=== PATIENT | male | born 1980 | race Caucasian/White ===

== ENCOUNTER 2020-05-06 01:50 | Outpatient (CLI) | payer OTHER, SELFPAY ==
[2020-05-06 18:40] LABS: SARS-CoV-2 RNA PCR Negative
== END 2020-05-06 01:51 | disposition home or self-care (01) ==
LOC: ANHCOVIDDT 01:51
PROVIDERS: PCP Nurse Practitioner; Visit Provider Surgery Plastic and Reconstructive Surgery
DX: Z01.812 Encounter for preprocedural laboratory examination (principal); Z20.828 Contact with and (suspected) exposure to other viral communicable diseases
CPT/HCPCS: 87635; C9803; U0003

== ENCOUNTER 2020-05-08 00:36 | Day surgery (SDC) | payer OTHER, SELFPAY ==
[2020-04-28 09:23] VITALS: BMI 32.3
--- NOTE | 2020-05-07 13:51 | WPDANESEPPF ---
Anes - Initial Pre Proc Eval Procedure: Operation Date: 05/08/20 07:30 Proposed Procedures p Treatment of Gynecomastia - Bello Harris MD Date/Time: 05/07/20 13:51 Surgeon: Bello Harris MD Pre Op Diagnosis: gynecomastia Patient Data Age: 39 Gender: M Height: 6 ft 1 in Weight: 111.13 kg Allergies Allergy/AdvReac Type Severity Reaction Status Date / Time No Known Allergies Allergy Verified 05/08/20 06:31 Home Medications Medication Instructions Recorded Confirmed Type Vitamin C 1 tablet PO DAILY 04/28/20 05/08/20 History cetirizine [Zyrtec] 10 mg PO DAILY 04/28/20 05/08/20 History glucosamine-chondroitin [Osteo 2 tablet PO DAILY 04/28/20 05/08/20 History Bi-Flex] docusate sodium 100 mg capsule 100 mg PO BID #14 cap 04/30/20 05/08/20 Rx hydrocodone 5 mg-acetaminophen 325 1 tablet PO Q6H PRN #15 tablet 04/30/20 05/08/20 Rx mg tablet ondansetron HCl 4 mg tablet 4 mg PO Q6H #30 tablet 04/30/20 05/08/20 Rx Patient hx anesthesia problems: none Family hx anesthesia problems: none PMFSH Past Medical History Medical History (Updated 05/07/20 @ 13:44 by Jermaine Mcduffie MD) Asthma Surgical History Surgical History (Updated 07/22/19 @ 16:18 by Jessica Gaming) History of vasectomy Social History Social History (Updated 07/22/19 @ 16:18 by Jessica Gaming) Smoking status: Never smoker Alcohol intake: current Drinks per week: 5 Spiritual care concerns: No Anes - Eval Final PreProcedure Day of Procedure 05/07/20 13:51 Patient weight: overweight Heart: regular rate and rhythm Lungs: clear to auscultation Airway: Mallampati scale class II Neurological: alert and oriented Last oral intake: >/= 8 hours ASA classification: II Emergent: no Anesthetic plan: proceed Anesthesia type and monitoring: general LMA and standard monitoring Informed Consent: The patient's anesthetic plan and its attendant risks and benefits were discussed with the patient/family/POA. Questions were solicited and answers provided to the satisfaction of the patient/family/POA.
[2020-05-08] VITALS (10 sets, daily range): BP systolic 122–139; BP diastolic 68–89; PULSE 60–80; RESP 10–20; TEMP 36–36.2; O2SAT 96–100
--- NOTE | 2020-05-08 06:52 | WPDHPUPDATE1 ---
History and Physical Update Update Date/Time: 05/08/20 06:52 History and Physical has been reviewed, including an updated exam of the patient. There are NO changes in the patient's condition. Risks, benefits, and alternatives have been discussed and questions answered. Patient agrees to proceed with procedure.
[2020-05-08] MEDS: LACTATED RINGERS 1,000 ML 30 ML IV CONT ×2 (07:07→10:12)
[2020-05-08 07:14] LABS: Urine Cotinine NEGATIVE
[2020-05-08] MEDS: ceFAZolin 2 GM/D5W 50 ML 2 GM/50 ML BAG IVPB (07:30)
--- NOTE | 2020-05-08 10:00 | PM.PROC ---
Procedure Note - Detailed Date of procedure: 05/08/20 Pre-op diagnosis: gynecomastia Post-op diagnosis: same Procedure performed: Mastectomy for gynecomastia Description of procedure: Patient was marked in the preoperative holding area with his verification. We discussed scar patterns. Realistic expectations of outcome. Risks, benefits, alternatives discussed. All questions answered to his satisfaction. Consent obtained. He was taken to the operating room placed supine on the operating room table. Anesthesia provided by anesthesiology and prepped and draped in a standard sterile fashion. Surgical time-out was taken. I verified my markings. This was based on a boomerang pattern. Stab incisions were made with an 11 blade. I used tumescent up. A marked out the nipple-areolar complex the appropriate size and this was to be inset into the appropriate size Mann con the superior aspect. Ten blade used to make the incisions and I resected the central portion of the chest wall tissue. I copiously irrigated with saline solution and verified strict hemostasis. This was tailor tacked into place. Next using a 4 mm basket cannula based on the S.A.F.E. technique I completed suction lipectomy of the area to a good contour. I closed using 2-0 Vicryl (to obliterate all space) followed by 3-0 strata fix in a running subcuticular 4-0 Monocryl and tissue glue. Topifoam and Sylvain were placed. Anesthesia: GLMA Surgeon: Bello Harris MD Estimated blood loss (mL): 30 Drains: No Packing: No Pathology: none sent Complications: No immediate complications Condition: stable Disposition: PACU
[2020-05-08] MEDS: fentaNYL CITRATE INJ (*CRX) 100 MCG/2 ML VIAL 25 MCG IV PUSH ×4 (10:23→10:52)
[2020-05-08] MEDS: oxyCODONE HCL (*CRX) 5 MG TAB IR PO (11:58)
--- NOTE | 2020-05-08 13:25 | SUR.PHASEII ---
1230- patient c/o feeling like smal irritant is in left eye. flushed with saline. reports improvement and mild irritation. no redness or visible problems noted. instructed to monitor and call md if further problems. denies pain or burning.
== END 2020-05-08 12:45 | disposition home or self-care (01) ==
PROVIDERS: PCP Nurse Practitioner; Visit Provider Surgery Plastic and Reconstructive Surgery
PROC: (CPT 19300; principal; 2020-05-08 07:30)
DX: N62 Hypertrophy of breast (principal)
CPT/HCPCS: 19300; 80307; A9270; J0131; J0171; J0690; J1100; J1170; J2250; J2405; J2704; J3010; J7120

== ENCOUNTER 2022-01-14 06:33 | Outpatient (CLI) | payer OTHER, SELFPAY ==
--- NOTE | ~2022-01-14 | MR_ITS ---
EXAMINATION: MR lumbar spine wo con DATE: 01/14/2022 07:16 INDICATION: Low back pain. TECHNIQUE: Magnetic resonance imaging (MRI) of the lumbar spine was performed without intravenous con trast. Sequences included sagittal T2-weighted FSE, sagittal T2-weighted FS FSE, sagittal T1-weighted FSE, and axial T2-weighted FSE. COMPARISON: None FINDINGS: There is 9 degrees levocurvature of lumbar spine. There is 3 mm retrolisthesis of L3 on L4 and L5 on S1. There are Schmorl's nodes at multiple levels. There is moderately decreased disc height at L3-L4 and L4-L5 and severely decreased disc height at L5-S1 with endplate remodeling. The distal spinal cord signal intensity is normal. The conus medullaris is at T12. The following disc levels are specifically discussed: L1-L2: The disc does not extend beyond the endplate margin. There is mild bilateral facet joint osteo arthritis. There is no neural foraminal stenosis. There is no central canal stenosis. L2-L3: The disc is bulging and has an annular fissure. There is mild bilateral facet joint osteoarthr itis. There is mild right and moderate left neural foraminal stenosis. There is mild central canal st enosis. L3-L4: The disc is bulging with superimposed right subarticular zone extrusion with mass effect on ri ght L4 nerve root in right frontal recess. There is moderate right and mild left facet joint osteoart hritis. There is moderate right and mild left neural foraminal stenosis. There is mild central canal stenosis at the midline. There is severe stenosis of right lateral recess. L4-L5: The disc is bulging with superimposed left central extrusion. There is moderate bilateral face t joint osteoarthritis. There is moderate bilateral neural foraminal stenosis. There is mild central canal stenosis. L5-S1: The disc is bulging with superimposed left central extrusion. There is mild bilateral facet ubaldo int osteoarthritis. There is moderate bilateral neural foraminal stenosis. There is mild central anu l stenosis. There is moderate stenosis of left lateral recess. IMPRESSION: 1. Severe lumbar spondylosis. Reviewed, dictated and finalized at location A.
== END 2022-01-14 06:34 | disposition home or self-care (01) ==
LOC: ANHIMG 06:40
PROVIDERS: PCP Nurse Practitioner
DX: M54.07 Panniculitis affecting regions of neck and back, lumbosacral region (principal); M47.817 Spondylosis without myelopathy or radiculopathy, lumbosacral region; M48.07 Spinal stenosis, lumbosacral region
CPT/HCPCS: 72148

== ENCOUNTER → 2022-03-03 15:27 | Outpatient (CLI) | payer OTHER, SELFPAY ==
--- NOTE | ~2022-03-03 | XR_ITS ---
XR hip RT 2V w AP pelvis DATE: 03/03/2022 15:47 INDICATION: Intermittent right hip pain for months. No injury. TECHNIQUE: AP pelvis. AP and lateral views of right hip. COMPARISON: None FINDINGS: Mild right hip osteoarthritis. No right hip fracture or bone destruction, avascular necros is or bone destruction. No pelvic fracture or bone destruction. The pubic symphysis and sacroiliac ubaldo ints are intact Mild levoscoliosis and degenerative change of the lumbar spine. IMPRESSION: Mild right hip osteoarthritis Reviewed, dictated and finalized at location B.
== END ==
DX: M16.11 Unilateral primary osteoarthritis, right hip (principal)
CPT/HCPCS: 73502

== ENCOUNTER 2022-03-08 11:46 | Emergency (ER) | payer OTHER, SELFPAY ==
--- NOTE | ~2022-03-08 | XR_ITS ---
[XR ribs RT 2V ] INDICATION: Right rib pain after trauma TECHNIQUE: Frontal projection of the upper right ribs, frontal projection of the lower right ribs, ob lique projection of all the right ribs, frontal inspiratory chest x-ray for interpretation. FINDINGS: There are no displaced rib fractures identified. There are no soft tissue abnormality see n. The lungs are clear. IMPRESSION: 1:No acute displaced rib fractures. Reviewed, dictated and finalized at location A.
[2022-03-08 11:51] VITALS: BP 136/77; PULSE 66; RESP 14; TEMP 37.1; O2SAT 100
--- NOTE | 2022-03-08 12:02 | ED.GENADULT ---
HPI - General Adult General Chief complaint: Chest Pain Stated complaint: Right Side/Rib injury Source: patient and RN notes reviewed Mode of arrival: ambulatory Limitations: no limitations History of Present Illness HPI narrative: 41-year-old male presents concern for right rib pain. Reports on Monday he walked into a pole in a parking lot. Reports since then he has had anterior right rib pain that worsens with deep breathing or coughing. Denies trouble breathing, bruising, open skin. Denies relief with anti-inflammatories. MD complaint: Rib pain Related Data Home Medications Medication Instructions Recorded Confirmed cyclobenzaprine 10 mg tablet 10 mg PO HS PRN Back Pain 03/08/22 03/08/22 diclofenac sodium 75 mg 75 mg PO BID 03/08/22 03/08/22 tablet,delayed release Allergies Allergy/AdvReac Type Severity Reaction Status Date / Time No Known Allergies Allergy Verified 03/08/22 11:58 Review of Systems Review of Systems: CONSTITUTIONAL: Denies malaise, chills, sweats, or fever. CARDIOVASCULAR: Denies chest pain, palpitations, or edema. RESPIRATORY: Denies cough or dyspnea. SKIN: Denies rash or itching, bruising, redness, swelling. MUSCULOSKELETAL: Reports anterior right chest wall pain NEUROLOGIC: Denies numbness, weakness All systems reviewed & are unremarkable except as noted in HPI and below PMFSH Past Medical History Medical History (Updated 03/08/22 @ 12:28 by Maria M Bertrand NP) Asthma Surgical History Surgical History History of vasectomy Family History Family History Father No problems noted. Social History Social History Smoking status: Never smoker Alcohol intake: current Drinks per week: 5 Spiritual care concerns: No Comments At time of signature, agree with nursing past medical, surgical, social and family history. There is no relevant family history pertinent to the presenting complaint Exam Narrative: GENERAL: Well-appearing, well-nourished, and in no acute distress. HEAD: Normocephalic, atraumatic. EYES: PERRLA, sclera clear ENT: Nares clear. Mucous membranes moist. NECK: Supple. CHEST: No respiratory distress. Clear to auscultation. No bony deformities, no asymmetry. Speaks in full sentences. Tenderness to the mid anterior right-sided chest HEART: Regular rate and rhythm. SKIN: Warm, dry, no visible rash. NEURO: Alert and oriented x3. PSYCH: Normal mood and affect Course Course Emergency Course: Patient is aware of diagnosis, understands and agrees to treatment plan. Anticipatory guidance given. Patient agrees to follow-up as directed and is aware of reasons to seek care at the emergency department. Portions of this record may have been created with voice recognition software Level of Care: Express Care Visit Vital Signs Vital signs: Vital Signs Temperature 98.7 F 03/08/22 11:51 Pulse Rate 66 03/08/22 11:51 Respiratory Rate 14 03/08/22 11:51 Blood Pressure 136/77 03/08/22 11:51 Pulse Oximetry 100 03/08/22 11:51 Oxygen Delivery Room Air 03/08/22 11:51 Temperature 98.7 F 03/08/22 11:51 Pulse Rate 66 03/08/22 11:51 Respiratory Rate 14 03/08/22 11:51 Blood Pressure 136/77 03/08/22 11:51 Pulse Oximetry 100 03/08/22 11:51 Oxygen Delivery Room Air 03/08/22 11:51 Reviewed. Medical Decision Making MDM Narrative Medical decision making narrative: Patients injury and pain is consistent with musculoskeletal etiology. No signs of neurological or vascular compromise on exam. Compartments and tissues are soft without signs of compartment syndrome. Pain is felt appropriate for further evaluation on an outpatient basis. Vital Signs Vital Signs: Vital Signs Temperature 98.7 F 03/08/22 11:51 Pulse Rate 66 03/08/22 11:51 Respi
[2022-03-08 12:04] VITALS: BP 136/77; PULSE 66; RESP 14; TEMP 37.1; O2SAT 100
== END 2022-03-08 12:29 | disposition home or self-care (01) ==
PROVIDERS: Emergency Provider Nurse Practitioner; PCP Nurse Practitioner
DX: S20.211A Contusion of right front wall of thorax, initial encounter (principal); W22.09XA Striking against other stationary object, initial encounter; J45.909 Unspecified asthma, uncomplicated
CPT/HCPCS: 71100; 99213; G0463

== ENCOUNTER 2023-02-08 14:49 | Emergency (ER) | payer OTHER, SELFPAY ==
--- NOTE | 2023-02-08 14:53 | ED.SKABFB ---
HPI - Skin/Abscess/Foreign Bdy General Chief complaint: Animal Bite Stated complaint: Dog Bites; Pain in hip Time Seen by Provider: 02/08/23 15:11 Source: patient and RN notes reviewed Mode of arrival: ambulatory Limitations: no limitations History of Present Illness HPI narrative: 42-year-old male presents with concern for a dog bite. Reports a neighbor's dog came on to his property,, he was trying to give the dog a treat to get off of his property, the dog bit him in the chest, then he fell to the ground hurting his left hip. He reports the dog then bit him in the arm. Reports he cleaned the wound in the shower. He is not up-to-date on his tetanus vaccination MD complaint: other (Animal bite) Related Data Home Medications Medication Instructions Recorded Confirmed diclofenac sodium 75 mg 75 mg PO BID 03/08/22 02/08/23 tablet,delayed release Allergies Allergy/AdvReac Type Severity Reaction Status Date / Time No Known Allergies Allergy Verified 03/08/22 11:58 Review of Systems Review of Systems: CONSTITUTIONAL: Denies malaise, chills, sweats, or fever. SKIN: Reports dog bite to the right chest and to bite it is to the right arm MUSCULOSKELETAL: Reports left hip pain NEUROLOGIC: Denies numbness, weakness All systems reviewed & are unremarkable except as noted in HPI and below PMFSH Past Medical History Medical History (Updated 02/08/23 @ 15:31 by Maria M Bertrand NP) Asthma Surgical History Surgical History History of vasectomy Family History Family History Father No problems noted. Social History Social History Smoking status: Never smoker Alcohol intake: current Drinks per week: 5 Spiritual care concerns: No Comments At time of signature, agree with nursing past medical, surgical, social and family history. There is no relevant family history pertinent to the presenting complaint Exam Narrative: GENERAL: Well-appearing, well-nourished, and in no acute distress. HEAD: Normocephalic, atraumatic. EYES: PERRLA, conjunctivae clear, and EOMI. ENT: Mucous membranes moist. Oropharynx without edema, erythema or lesions. NECK: Supple. No lymphadenopathy CHEST: Clear to auscultation. No respiratory distress. HEART: Regular rate and rhythm. SKIN: Warm, dry. 2 cm gaping wound noted to the chest, puncture wound proximal to that, 1 cm linear gaping wound into the subcutaneous noted to the right forearm, palmar side, 1.5 cm irregular wound noted to the dorsal right forearm NEURO: Alert and oriented x3. PSYCH: Normal mood and affect Course Course Emergency Course: Patient is aware of diagnosis, understands and agrees to treatment plan. Anticipatory guidance given. Patient agrees to follow-up as directed and is aware of reasons to seek care at the emergency department. Portions of this record may have been created with voice recognition software Level of Care: Express Care Visit Vital Signs Vital signs: Reviewed. Procedures Laceration Laceration 1: Date: 02/08/23 Time: 15:25 Site: upper extremity Side (If applicable): right Size (cm): 1 Description: linear Depth: simple, single layer Pre-repair: wound explored and irrigated extensively ====== Skin Level ====== Skin layer closed with: steri strips ====== Subcutaneous Layer ====== ====== Muscle Layer ====== ====== Tendon Layer ====== Laceration 2: Date: 02/08/23 Time: 15:30 Site: chest Side (If applicable): right Size (cm): 2 Description: linear Depth: simple, single layer Pre-repair: wound explored and irrigated extensively ====== Skin Level ====== Skin layer closed with: steri strips =====
[2023-02-08 15:11] VITALS: BP 140/77; PULSE 76; RESP 16; TEMP 37.2; O2SAT 99
[2023-02-08] MEDS: TETANUS,DIPHTHERIA,AC PERTUSSIS ADULT (0.5 ML) BOOSTRIX IM (15:19)
== END 2023-02-08 15:34 | disposition home or self-care (01) ==
PROVIDERS: Emergency Provider Nurse Practitioner; PCP Nurse Practitioner
DX: S21.111A Laceration without foreign body of right front wall of thorax without penetration into thoracic cavity, initial encounter (principal); S51.811A Laceration without foreign body of right forearm, initial encounter; W54.0XXA Bitten by dog, initial encounter; Z23 Encounter for immunization; J45.909 Unspecified asthma, uncomplicated; Z98.52 Vasectomy status
CPT/HCPCS: 90471; 90715; 99212; G0463

== ENCOUNTER 2023-03-15 13:27 | Emergency (ER) | payer OTHER, SELFPAY ==
--- NOTE | 2023-03-15 13:30 | ED.URI ---
HPI - URI/Sore Throat General Chief Complaint: Upper Respiratory Infection Stated Complaint: Sore Throat,Body Aches,Fatigue Time Seen by Provider: 03/15/23 13:30 Source: patient Mode of arrival: ambulatory Limitations: no limitations History of Present Illness HPI Narrative: Jose is a 42-year-old male patient presenting to the clinic today with complaints of a sore throat, body aches,and fatigue for 2-3 weeks. States he has done a couple COVID test at home and they have been negative. Recently has gotten back from vacation. States the his throat is scratchy for the last few days. Denies any chest pain. Does report some fatigue/shortness of breath with activity. History of asthma. Is a nonsmoker. Has been working out he over the last week however he states he was feeling ill prior to this. checked his blood sugar at home and was 120. No fever or chills. MD elicited complaint: sore throat and other (Congestion, phlegm) Related Data Home Medications Medication Instructions Recorded Confirmed sildenafil 50 mg tablet 50 mg PO PRN PRN Erectile 03/15/23 03/15/23 Dysfunction Allergies Allergy/AdvReac Type Severity Reaction Status Date / Time No Known Allergies Allergy Verified 03/15/23 13:30 Review of Systems Review of Systems: Pertinent positives per HPI. Patient denies any fever, chills, rash, headache, visual changes, dizziness, cough,chest pain, palpitations, nausea, vomiting, diarrhea, constipation, abdominal pain, or any urinary issues. [facility] Past Medical History Medical History (Updated 03/15/23 @ 14:06 by Calin Garcia APRN) Asthma Surgical History Surgical History History of vasectomy Family History Family History Father No problems noted. Social History Social History Smoking status: Never smoker Alcohol intake: current Drinks per week: 5 Spiritual care concerns: No Comments At the time of my signature, I reviewed and agree with the nursing past medical, surgical, social, and family history. There is no relevant family history pertinent to the patient complaint. Exam Narrative: General: Well-developed, well nourished, in no apparent distress Head: Normocephalic, atraumatic Eyes: Pupils equally round and reactive to light bilaterally, EOM intact, sclera and conjunctive clear, no discharge, lids normal Ears: TMs intact and clear, ear canals clear, no drainage, grossly hearing normal. Nose: Nares patent, clear discharge, mild inflammation, no sinus tenderness. Mouth: Oral pharynx without lesions or masses, good dentition, MMM. Postnasal drip Neck: Supple, trachea midline, no enlargement of anterior or posterior cervical nodes, no thyroid masses or goiter palpable. Cardio: Regular rate and rhythm, s1 and s2 normal, no murmur appreciated. Resp: Clear to auscultation bilaterally, no rhonchi, rales, wheezing or rubs Course Course Emergency Course: Portions of this record may have been created with voice recognition software. Level of Care: Express Care Visit Vital Signs Vital signs: Vital signs reviewed MDM - URI/Sore Throat MDM Narrative Medical decision making narrative: At the time of visit patient is resting comfortably on the exam table. Strep and mono testing was performed and were negative. We will send strep for culture. Offered chest x-ray as patient has history of asthma and shortness of breath on exertion but he declines at this time. States it feels more as though he just does not have the energy to complete task. Vital signs are stable. Will send in prescription for prednisone to treat congestion/postnasal drip/scratchy throat. Supportive measures were discussed with the patient he voiced understanding discharge instructions and agrees to treatm
[2023-03-15 13:43] VITALS: BP 129/80; PULSE 80; RESP 18; TEMP 36.8; O2SAT 99
== END 2023-03-15 14:08 | disposition home or self-care (01) ==
PROVIDERS: Emergency Provider Nurse Practitioner Family; PCP Nurse Practitioner
DX: R09.82 Postnasal drip (principal); B34.9 Viral infection, unspecified; J02.9 Acute pharyngitis, unspecified; J45.909 Unspecified asthma, uncomplicated; Z98.52 Vasectomy status
CPT/HCPCS: 36416; 86308; 87081; 87880; 99213; G0463

== ENCOUNTER 2023-10-03 13:09 | Outpatient (RCR) | payer OTHER, SELFPAY ==
--- NOTE | 2023-10-03 14:39 | OPREHPOC ---
Outpatient Therapy Plan of Care This is a Multidisciplinary Plan of Care that may contain components documented by all disciplines (PT, OT, and ST.) PT Problem 1 PT Problem #1 Knowledge Deficit PT Goal 1 Goal Pt to be IND with issued HEP Target Visit 8 PT Problem 2 PT Problem #2 Pain PT Goal 1 Goal Pt to report shoulder pain no greater than 3/10 in the last week. Target Visit 8 PT Goal 2 Goal Pt to report 75% improvement in overall symptoms. Target Visit 8 PT Problem 3 PT Problem #3 Impaired Strength PT Goal 1 Goal Pt to demonstrate symmetrical scapular tracking with overhead press. Target Visit 8 PT Goal 2 Goal Pt to demonstrate good scapular control with resisted shoulder motions Target Visit 8
--- NOTE | 2023-10-03 14:39 | PTOPEVAL1 ---
Assessment and note entered by Anuj Conde, PT, DPT Evaluation Information Assessment Status Evaluation Diagnosis michaela shoulder pain Onset chronic Subjective Information Pt reports pinching feeling in her R shoulder, he states he has a partial tear of his RTC. He reports a similar pain in his L shoulder as well. He states he does a lot of work around his home and works in a lawn care business and is having limitations with this. He reports a pinching pain in his R shoulder when lifting any amount of weight over his head. His sleeping has been disrupted in the past but is having no issues now. Reported Pain Level Pain Score 0: Self Report Assessment PT Clinical Summary Pedro presents to therapy today for his initial evaluation with a diagnosis of michaela shoulder pain. Today he demonstrates shoulder strength and ROM that is WNL. He demonstrates asymmetrical scapulohumeral rhythm, with anterior resting shoulder. He also has accessory recruitment of his R upper trap. Skilled therapy services are indicated to improve scapular strength, shoulder mechanics, and to improve overall functional mobility. Plan of Care Interventions Electrical Stimulation,Gait Training,Hot Pack/Cold Pack,Manual Therapy,Neuro Re-education,Patient/ Caregiver Educati,Therapeutic Activities, Therapeutic Exercise PT Services Indicated Yes Treatment Frequency and 1x/wk for 6 visits Duration These treatments will address the objective and functional deficits as defined above. The patient will be advanced safely and appropriately in order for the patient to progress towards his/her prior level of function. Additional exercises will be introduced and as well as a comprehensive home exercise program upon discharge, if needed, ?to ensure carryover of functional gains achieved in the clinic. This treatment plan has been reviewed and agreement upon by the patient.
--- NOTE | 2023-10-17 10:35 | PCPTNOTE ---
Patient did not show up for scheduled appointment this date.
--- NOTE | 2023-10-20 12:45 | PCPTNOTE ---
Admitting Provider: Attending Provider: Esther Ignacio, [employer]-C Patient:Pedro Bertrand Date of :1980 Patient has not returned for any further treatments since 10/03/2023, therefore he will be discharged at this time. Patient?s initial visit was on 10/03/2023 13:45 and he had a total of 1 visit. The goals have not been met Thank you for referring this patient to [facility]. Please review, sign, date and return this discharge summary. I have been updated about the patient's current status and I agree with discharge from the above service at this time. Referring Physician Date
== END 2023-10-20 14:29 | disposition other institution (70) ==
LOC: ANHGOSHPT 13:09
PROVIDERS: PCP Nurse Practitioner; Visit Provider Nurse Practitioner
DX: M25.511 Pain in right shoulder (principal); M25.512 Pain in left shoulder; G89.29 Other chronic pain
CPT/HCPCS: 97110; 97161

== ENCOUNTER 2024-06-13 08:29 | Outpatient (CLI) | payer OTHER, SELFPAY ==
[2024-06-13 09:07] LABS: Basophils Absolute Auto 0.1 K/mm3 (0.0-0.1); Basophils Percent Auto 0.6 % (0.2-1.2); Eosinophils Absolute Auto 0.4 K/mm3 (0-0.3); Eosinophils Percent Auto 4.9 % (0-4.4); Hematocrit 43.1 % (42.0-52.0); Hemoglobin 14.4 g/dL (14.0-18.0); Immature Granulocyte Absolute 0.07 K/mm3 (0.00-0.031); Immature Granulocyte Percent A 0.9 % (0-0.5); Lymphocytes Absolute Auto 2.71 K/mm3 (0.9-3.2); Lymphocytes Percent Auto 33.5 % (18.3-44.2); Mean Corpuscular HGB Conc 33.4 g/dl (32-36); Mean Corpuscular Hemoglobin 31.9 pg (26-34); Mean Corpuscular Volume 95.6 fl (80-100); Mean Platelet Volume 9.7 fl (7.4-10.4); Monocytes Absolute Auto 0.8 K/mm3 (0.1-0.6); Monocytes Percent Auto 9.5 % (2.6-8.5); Neutrophils Absolute Auto 4.1 K/mm3 (1.3-6.7); Neutrophils Percent Auto 50.6 % (45.5-73.1); Platelet Count Result 240 k/mm3 (150-375); Red Blood Count 4.51 M/mm3 (4.6-6.20); Red Cell Distribution Width 12.7 % (11.5-14.5); White Blood Count 8.1 K/mm3 (4.5-10.0)
[2024-06-13 09:19] LABS: Alanine Aminotransferase 41 U/L (6-50); Albumin Level 4.5 g/dL (3.5-5.1); Alkaline Phosphatase 69 U/L (38-126); Anion Gap 9 mmol/L (4-12); Aspartate Amino Transferase 32 U/L (17-59); Bilirubin,Total 0.5 mg/dL (0.2-1.3); Blood Urea Nitrogen 13 mg/dL (9-20); Calcium 8.7 mg/dL (8.4-10.2); Carbon Dioxide 27 mmol/L (22-30); Chloride 106 mmol/L (98-107); Cholesterol 188 mg/dL (0-200); Estimated Glomerular Filt Rate > 60; Glucose 87 mg/dL (65-110); HDL Direct 37 mg/dL; Potassium 4.1 mmol/L (3.4-5.0); Sodium 142 mmol/L (137-145); Triglycerides 157 mg/dL (<150)
[2024-06-13 09:29] LABS: LDL Cholesterol Direct 112 mg/dL
== END 2024-06-13 08:30 | disposition home or self-care (01) ==
LOC: ANHLAB 08:32
PROVIDERS: PCP Nurse Practitioner; Visit Provider Nurse Practitioner
DX: Z00.00 Encounter for general adult medical examination without abnormal findings (principal)
CPT/HCPCS: 36415; 80053; 80061; 84443; 85025

== ENCOUNTER 2024-10-03 00:24 | Day surgery (SDC) | payer OTHER, SELFPAY ==
[2024-09-19 08:47] VITALS: BMI 29.7
[2024-10-03 07:42] VITALS: BP 120/85; PULSE 70; RESP 16; TEMP 36.4; O2SAT 98
[2024-10-03] MEDS: LACTATED RINGERS 1,000 ML 150 ML IV CONT (07:50)
--- NOTE | 2024-10-03 08:23 | P.HP_ITS ---
H&P: HPI History of Present Illness Date/Time: 10/03/24 08:23 Chief Complaint: Screening colonoscopy Narrative: This is the patient's first colonoscopy. There are no GI symptoms and there is no family history of colorectal cancer. Review of Systems Review of Systems: All systems reviewed & are unremarkable except as noted in HPI and below [facility] Past Medical History Medical History (Updated 10/03/24 @ 08:23 by Lee Ivory MD) Asthma Surgical History Surgical History History of vasectomy Family History Family History Father No problems noted. Social History Social History Smoking status: Never smoker Alcohol intake: current Drinks per week: 3 Substance use type: does not use Living arrangements: alone Spiritual care concerns: No Meds Home Medications and Allergies Home Medications ?Medication ?Instructions ?Recorded ?Confirmed ?Type prednisone 20 mg tablet 40 mg (2 x 20 mg) PO DAILY 5 days 03/15/23 10/03/24 Rx #10 tabs sildenafil 50 mg tablet 50 mg PO PRN PRN Erectile 03/15/23 09/19/24 History Dysfunction diclofenac sodium 75 mg mg PO 09/19/24 History tablet,delayed release methylphenidate HCl 18 mg mg PO 09/19/24 History tablet,extended release 24 hr Allergies Allergy/AdvReac Type Severity Reaction Status Date / Time No Known Allergies Allergy Verified 10/03/24 07:40 Vital Signs Vital Signs - 24 hr 10/03/24 07:42 Temperature 97.5 F L Pulse Rate 70 Respiratory Rate 16 Blood Pressure 120/85 Pulse Oximetry 98 Oxygen Delivery Room Air Exam Const: General: cooperative and healthy appearing Resp: Effort & Inspection: normal respiratory effort and able to speak in complete sentences Auscultation: clear to auscultation bilaterally Cardio: Rate: regular rate Rhythm: regular rhythm GI: Inspection: normal to inspection GI Palp: No No hepatosplenomegaly present Auscultation: normal bowel sounds Rectal Exam: deferred Skin: General skin exam: normal color Psych: Appearance: grossly normal Mental Status: mental status grossly normal Assessment and Plan Assessment and plan (1) Encounter for screening colonoscopy: Code(s): Z12.11 - Encounter for screening for malignant neoplasm of colon Status: Acute Assessment and Plan: The patient is deemed a good candidate for the procedure. Consent signed. Will proceed.
--- NOTE | 2024-10-03 08:27 | P.PNAN_ITS ---
Anes - Initial Pre Proc Eval Procedure: Operation Date: 10/03/24 08:00 Proposed Procedures p Screening Colonoscopy - Lee Ivory MD Date/Time: 10/03/24 08:27 Surgeon: Lee Ivory MD Pre Op Diagnosis: screening malignant neoplasm colon Patient Data Age: 44 Gender: M Height: 1.85 m Weight: 103.5 kg Last Vital Signs Temp 97.5 F L 10/03/24 07:42 Pulse 70 10/03/24 07:42 Resp 16 10/03/24 07:42 BP 120/85 10/03/24 07:42 Pulse Ox 98 10/03/24 07:42 O2 Del Method Room Air 10/03/24 07:42 Allergies Allergy/AdvReac Type Severity Reaction Status Date / Time No Known Allergies Allergy Verified 10/03/24 07:40 Home Medications ?Medication ?Instructions ?Recorded ?Confirmed ?Type prednisone 20 mg tablet 40 mg (2 x 20 mg) PO DAILY 5 days 03/15/23 10/03/24 Rx #10 tabs sildenafil 50 mg tablet 50 mg PO PRN PRN Erectile 03/15/23 09/19/24 History Dysfunction diclofenac sodium 75 mg mg PO 09/19/24 History tablet,delayed release methylphenidate HCl 18 mg mg PO 09/19/24 History tablet,extended release 24 hr Patient hx anesthesia problems: none Family hx anesthesia problems: none Results Review: All pre-operative results and documents have been reviewed as part of the pre- operative evaluation. [facility] Past Medical History Medical History Asthma Surgical History Surgical History History of vasectomy Family History Family History Father No problems noted. Social History Social History Smoking status: Never smoker Alcohol intake: current Drinks per week: 3 Substance use type: does not use Living arrangements: alone Spiritual care concerns: No Anes - Eval Final PreProcedure Day of Procedure 10/03/24 08:27 Patient weight: overweight Lungs: normal air movement Airway: Mallampati scale class II Last oral intake: >/= 8 hours ASA classification: I Emergent: no Anesthetic plan: proceed Anesthesia type and monitoring: general GIVS and standard monitoring Results Review: All pre-operative results and documents have been reviewed as part of the pre- operative evaluation. Healthy. Informed Consent: The patient's anesthetic plan and its attendant risks and benefits were discussed with the patient/family/POA. Questions were solicited and answers provided to the satisfaction of the patient/family/POA.
[2024-10-03 08:48] VITALS: BP 119/80; PULSE 83; RESP 13; O2SAT 96
[2024-10-03 08:58] VITALS: BP 112/74; PULSE 75; RESP 14; O2SAT 97
[2024-10-03 09:08] VITALS: BP 130/83; PULSE 79; RESP 18; O2SAT 100
== END 2024-10-03 09:17 | disposition home or self-care (01) ==
PROVIDERS: PCP Nurse Practitioner; Referring Provider Nurse Practitioner; Visit Provider Internal Medicine Gastroenterology
PROC: 0DJD8ZZ Inspection of Lower Intestinal Tract, Via Natural or Artificial Opening Endoscopic (ICD-10-PCS; CPT 45378; principal; 2024-10-03 08:00)
DX: Z12.11 Encounter for screening for malignant neoplasm of colon (principal)
CPT/HCPCS: 45378; J2704; J7120

== ENCOUNTER 2025-07-18 12:58 | Outpatient (CLI) | payer OTHER, SELFPAY | END 2025-07-18 12:59 | disposition home or self-care (01) | LOC: ANHAUDASC 13:00 | PROVIDERS: PCP Nurse Practitioner; Visit Provider Nurse Practitioner | DX: F98.8 Other specified behavioral and emotional disorders with onset usually occurring in childhood and adolescence (principal); M51.379 Other intervertebral disc degeneration, lumbosacral region without mention of lumbar back pain or lower extremity pain; N52.9 Male erectile dysfunction, unspecified; Z79.1 Long term (current) use of non-steroidal anti-inflammatories (NSAID); H91.93 Unspecified hearing loss, bilateral; F51.01 Primary insomnia; R06.83 Snoring | CPT/HCPCS: 92557; 92567 ==